=== PATIENT | male | born 1975 ===

== ENCOUNTER 2019-02-13 13:21 | Emergency (ER) | payer SELFPAY ==
[2019-02-13] MEDS ORDERED: Lidocaine 1% (PF) 30 ML VIAL ONE (13:38)
[2019-02-13] MEDS ORDERED: Adacel (T-DAP) 0.5 ML SYRINGE ONE (13:38)
[2019-02-13] MEDS ORDERED: Lidocaine 1% w/Epinephrine 1:100K 20 ML VIAL ONE (13:42)
[2019-02-13] MEDS ORDERED: CEFAZOLIN 1 GM VIAL ONE ×2 (14:38→15:20)
[2019-02-13] MEDS ORDERED: Acetaminophen 500 MG TAB ONE (15:01)
[2019-02-13] MEDS ORDERED: Bacitracin 1 PK ONE (15:02)
[2019-02-13] MEDS ORDERED: CEFAZOLIN 1 GM VIAL IM SCH (15:15)
[2019-02-13] MEDS ORDERED: Water For Inject, Bacteriostat 30 ML ONE (15:23)
== END 2019-02-13 15:18 | disposition home or self-care (01) ==
LOC: ERS 13:21
DX: S41.112A Laceration without foreign body of left upper arm, initial encounter (principal); X58.XXXA Exposure to other specified factors, initial encounter; Y92.009 Unspecified place in unspecified non-institutional (private) residence as the place of occurrence of the external cause
CPT/HCPCS: 12042; 90471; 90715; 96372; J0690; J2001